=== PATIENT | male | born 1990 | race Hispanic/Latino ===

== ENCOUNTER 2020-05-03 21:16 | Emergency (ER) | payer OTHER ==
--- NOTE | 2020-05-03 21:39 | Emergency Department Report ---
ED Altered Mental Status HPI - General Chief Complaint: Altered Mental Status Stated Complaint: ETOH Time Seen by Provider: 05/03/20 21:31 Source: police Mode of arrival: Ambulatory Limitations: Altered Mental Status - History of Present Illness Initial Comments: 29-year-old male brought in by [employer] police for evaluation. Patient is evidently wanted for leaving a transitional facility. Patient has ankle monitor on. He was found by police at an [employer] and arrested. Arresting officer states that patient was initially talking to him, however upon arrival to the skilled nursing patient would not answer any questions for the nurse. So, nurse advised officers to bring him to the ER for evaluation. Patient is currently awake and alert and answering questions. He does seem to be intoxicated. Patient reports he has been drinking "all day." He also reports using methamphetamine. MD Complaint: altered mental status, intoxication -: This evening Severity: moderate Consistency of Symptoms: waxing and waning Context: alcohol abuse, drug abuse Associated Symptoms: denies other symptoms - Related Data Allergies Allergy/AdvReac Type Severity Reaction Status Date / Time No Known Allergies Allergy Unverified 05/03/20 22:47 ED Review of Systems ROS: Stated complaint: ETOH Other details as noted in HPI Comment: All other systems reviewed and negative Cardiovascular: denies: chest pain Neurological: denies: headache ED Physical Exam - General Limitations: Altered Mental Status General appearance: alert, in no apparent distress, appears intoxicated - Head Head exam: Present: atraumatic, normocephalic - Eye Eye exam: Present: normal appearance, PERRL, EOMI - ENT ENT exam: Present: mucous membranes moist - Neck Neck exam: Present: normal inspection - Respiratory Respiratory exam: Present: normal lung sounds bilaterally. Absent: respiratory distress - Cardiovascular Cardiovascular Exam: Present: regular rate, normal rhythm - GI/Abdominal GI/Abdominal exam: Present: soft. Absent: distended, tenderness - Extremities Exam Extremities exam: Present: normal inspection - Neurological Exam Neurological exam: Present: alert, oriented X3, other (intoxicated). Absent: motor sensory deficit - Psychiatric Psychiatric exam: Present: normal affect, normal mood - Skin Skin exam: Present: warm, dry, intact, normal color ED Course Vital Signs 05/03/20 05/03/20 21:37 22:02 Temperature 98.8 F Pulse Rate 96 H Respiratory 20 Rate Blood Pressure 120/59 [Right] O2 Sat by Pulse 96 Oximetry - Medical Decision Making 29-year-old male in police custody brought into the ED for evaluation because patient refused to answer the nurses questions at the skilled nursing. Arresting officer reports that patient was conversing normally prior to arrival at the skilled nursing. Patient is currently conversing normally at this time. He is A&O x3. He appears to be intoxicated and admits to drinking all day and using methamphetamine. CT head is negative for any acute abnormalities. Vital signs are stable. Patient will be discharged into police custody. - Differential Diagnosis Substance abuse, intoxication, intracranial abnormality Critical care attestation.: If time is entered above; I have spent that time in minutes in the direct care of this critically ill patient, excluding procedure time. ED Disposition Clinical Impression: Alcohol intoxication, Methamphetamine abuse Disposition: DC-01 TO HOME OR SELFCARE Is pt being admited?: No Condition: Stable Instructions: Substance Use Disorder Referrals: [facility] [Provider Group] - 3-5 Days Time of Disposition: 22:43
--- NOTE | 2020-05-03 22:41 | Cat Scan Report ---
CT HEAD WITHOUT CONTRAST INDICATION / CLINICAL INFORMATION: Altered Mental Status. TECHNIQUE: All CT scans at this location are performed using CT dose reduction for ALARA by means of automated e xposure control. COMPARISON: None available. FINDINGS: HEMORRHAGE: None. EXTRA-AXIAL SPACES: Normal in size and morphology for the patient's age. VENTRICULAR SYSTEM: Normal in size and morphology for the patient's age. CEREBRAL PARENCHYMA: No significant abnormality. No acute territorial infarct. MIDLINE SHIFT OR HERNIATION: None. CEREBELLUM / BRAINSTEM: No significant abnormality. ORBITS: Normal as visualized. SOFT TISSUES of HEAD: No significant abnormality. CALVARIUM: No significant abnormality. PARANASAL SINUSES / MASTOID AIR CELLS: Normal as visualized. ADDITIONAL FINDINGS: None. IMPRESSION: No acute intracranial abnormality. Signer Name: Remington Flores MD Signed: 05/03/2020 10:37 PM Workstation Name: [id number]
[2020-05-03 23:04] VITALS: BP 111/53
== END 2020-05-03 22:56 | disposition home or self-care (01) ==
LOC: ED 21:16
DX: F10.129 Alcohol abuse with intoxication, unspecified (principal); F15.10 Other stimulant abuse, uncomplicated
CPT/HCPCS: 70450